=== PATIENT | male | born 1955 ===

== ENCOUNTER 2023-09-30 17:22 | Outpatient (REF) | payer MEDICARE, MEDICAID, SELFPAY ==
[2023-09-30 22:58] LABS: COVID-19 PCR Negative (Negative); Influenza A PCR Negative (Negative); Influenza B PCR Negative (Negative); RSV PCR Negative (Negative)
[2023-09-30 23:12] LABS: Source Nasopharynx
== END 2023-09-30 17:23 | disposition home or self-care (01) ==
LOC: LBN 17:22
PROVIDERS: Visit Provider Physician Assistant Medical
DX: B34.9 Viral infection, unspecified (principal)
CPT/HCPCS: 87637; 87070